=== PATIENT | female | born 1965 | race Caucasian/White ===

== ENCOUNTER 2016-11-09 10:06 | Emergency (ER) | payer OTHER | END 2016-11-09 10:37 | disposition home or self-care (01) | LOC: BURERS 10:06 | DX: Z76.0 Encounter for issue of repeat prescription (principal); I10 Essential (primary) hypertension; F41.9 Anxiety disorder, unspecified; F17.210 Nicotine dependence, cigarettes, uncomplicated; Z79.899 Other long term (current) drug therapy | CPT/HCPCS: 99281 ==

== ENCOUNTER 2016-11-27 10:55 | Emergency (ER) | payer OTHER ==
[2016-11-27 11:28] LABS: #Basophils 0.1 thou/uL (0.0-0.2); #Eosinphils 0.2 thou/uL (0.0-0.7); #Lymphocytes 3.4 thou/uL (1.20-3.40); #Monocytes 0.6 thou/uL (0.11-0.59); %Basophils 1.1 % (0.0-1.0); %Eosinophils 1.5 % (0.0-10.0); %Lymphocytes 33.5 % (21.0-51.0); %Monocytes 5.4 % (0.0-10.0); %Neutrophils 58.5 % (42.0-75.0); Hemoglobin 16.8 g/dL (12.0-16.0); Mean Corpuscular HGB CONC 34.5 g/dL (32.0-36.0); Mean Corpuscular Hemoglobin 30.7 pg (27.0-31.0); Mean Platelet Volume 8.1 fL (7.4-10.4); Platelet Count 235 thou/uL (130-400); RBC Distribution Width 12.1 % (11.5-14.5); Red Blood Cell (RBC) Count 5.47 mill/uL (4.20-5.40); White Blood Cell (WBC) Count 10.2 thou/uL (4.8-10.8)
[2016-11-27 11:40] LABS: ALT (SGPT) 31 U/L (8-55); AST (SGOT) 24 U/L (5-34); Albumin 4.2 g/dL (3.5-5.0); Alkaline Phosphatase 71 U/L (40-150); Anion Gap 18 mmol/L (10-20); BUN (Urea Nitrogen) 11 mg/dL (7.0-18.7); Bilirubin, Total 0.8 mg/dL (0.2-1.2); Calc. Creatinine Clearance 0 mL/min (70-130); Calcium 9.1 mg/dL (7.8-10.44); Carbon Dioxide 22 mmol/L (22-29); Chloride 103 mmol/L (98-107); Estimated GFR-MDRD 76; Globulin 3.4 g/dL (2.4-3.5); Glucose 126 mg/dL (70-105); Lipase 31 U/L (8-78); Potassium 3.8 mmol/L (3.5-5.1); Protein, Total 7.6 g/dL (6.0-8.3); Sodium 139 mmol/L (136-145)
[2016-11-27 11:41] LABS: CKMB 2.3 ng/mL (0-6.6); Troponin I Less than 0.010 ng/mL (< 0.028)
[2016-11-27 12:17] LABS: Bilirubin Negative (Negative); Blood, Urine Negative (Negative); Clarity Clear (Clear); Glucose, Urine (Dipstick) Negative (Negative); Leukocyte Negative (Negative); Nitrite Negative (Negative); Protein, Urine (Dipstick) Negative (Neg-Trace); Urobilinogen 0.2 mg/dL (0.2-1.0)
--- NOTE | 2016-11-27 13:13 | RAD ---
PORTABLE CHEST: DATE: 11/27/16. PROVIDED CLINICAL HISTORY: Chest pain. FINDINGS: Comparison 03/20/16. Cardiac and mediastinal silhouette is within normal limits. Evaluation is limi calderon by patient body habitus. No focal consolidation, pleural fluid, or pneumothorax apparent. IMPRESSION: No evidence for an acute cardiopulmonary process. POS: [facility]
== END 2016-11-27 12:37 | disposition home or self-care (01) ==
LOC: BURERS 10:55
DX: B34.9 Viral infection, unspecified (principal); I10 Essential (primary) hypertension; J44.9 Chronic obstructive pulmonary disease, unspecified; F41.9 Anxiety disorder, unspecified; F17.210 Nicotine dependence, cigarettes, uncomplicated; Z79.899 Other long term (current) drug therapy
CPT/HCPCS: 71010; 80053; 81003; 82553; 83690; 84443; 84484; 85025; 93005; 96360

== ENCOUNTER 2017-05-03 13:27 | Emergency (ER) | payer OTHER ==
--- NOTE | 2017-05-03 14:13 | RAD ---
CHEST TWO VIEWS HISTORY: Cough. COMPARISON: Chest one view 11/27/2016. FINDINGS: Lungs are clear. No pneumothorax or effusion. Cardiac silhouette and mediastinal contours are with in normal limits. IMPRESSION: No acute intrathoracic abnormality. POS: [facility]
== END 2017-05-03 14:15 | disposition home or self-care (01) ==
LOC: BURERS 13:27
DX: B34.9 Viral infection, unspecified (principal); I10 Essential (primary) hypertension; J44.9 Chronic obstructive pulmonary disease, unspecified; F41.9 Anxiety disorder, unspecified; F17.210 Nicotine dependence, cigarettes, uncomplicated; Z79.899 Other long term (current) drug therapy; Z79.1 Long term (current) use of non-steroidal anti-inflammatories (NSAID); Z79.52 Long term (current) use of systemic steroids
CPT/HCPCS: 71020; 99406

== ENCOUNTER 2017-09-08 12:51 | Emergency (ER) | payer OTHER ==
[2017-09-08] MEDS ORDERED: Ketorolac Tromethamine 30 MG/ML VIAL ONE (13:14)
[2017-09-08 13:20] LABS: Bilirubin Small (Negative); Blood, Urine Negative (Negative); Clarity Slightly Cloudy (Clear); Glucose, Urine (Dipstick) Negative (Negative); Leukocyte Negative (Negative); Nitrite Negative (Negative); Protein, Urine (Dipstick) 30 mg/dL (Neg-Trace); Urobilinogen 0.2 mg/dL (0.2-1.0); pH, Urine 7.5 (5.0-9.0)
[2017-09-08 13:32] LABS: Bacteria/HPF 1+ HPF (None Seen); Crystals/HPF None Seen HPF (Negative); Hyaline Casts/LPF NONE SEEN LPF (0-3 Hyaline); Other Casts/LPF None Seen LPF (0-3 Hyaline); Oval Fat Bodies/HPF None Seen HPF (None Seen); RBC/HPF 0-3 HPF (0-3); Renal Epithelial None Seen HPF (0-3); Sperm/HPF None Seen HPF (None Seen); Transitional Epithelial NONE SEEN HPF (0-3); Trichomonas/HPF None Seen HPF (None Seen); WBC/HPF 0-3 HPF (0-3); Yeast-All Forms None Seen HPF (None Seen)
[2017-09-08 13:40] LABS: ALT (SGPT) 24 U/L (8-55); AST (SGOT) 16 U/L (5-34); Albumin 4.1 g/dL (3.5-5.0); Alkaline Phosphatase 76 U/L (40-150); Anion Gap 14 mmol/L (10-20); BUN (Urea Nitrogen) 12 mg/dL (9.8-20.1); Bilirubin, Total 0.5 mg/dL (0.2-1.2); Calc. Creatinine Clearance 0 mL/min (70-130); Calcium 9.2 mg/dL (7.8-10.44); Carbon Dioxide 23 mmol/L (22-29); Chloride 104 mmol/L (98-107); Estimated GFR-MDRD 87; Glucose 126 mg/dL (70-105); Lipase 31 U/L (8-78); Potassium 3.8 mmol/L (3.5-5.1); Protein, Total 7.1 g/dL (6.0-8.3); Sodium 137 mmol/L (136-145)
[2017-09-08 13:42] LABS: #Basophils 0.1 thou/uL (0.0-0.2); #Eosinphils 0.1 thou/uL (0.0-0.7); #Lymphocytes 2.9 thou/uL (1.20-3.40); #Monocytes 0.6 thou/uL (0.11-0.59); #Neutrophils 7.8 thou/uL (1.40-6.50); %Basophils 1.2 % (0.0-1.0); %Eosinophils 0.8 % (0.0-10.0); %Lymphocytes 25.1 % (21.0-51.0); %Monocytes 5.2 % (0.0-10.0); %Neutrophils 67.7 % (42.0-75.0); Eosinophils 1 % (0-10); Hemoglobin 16.3 g/dL (12.0-16.0); Lymphocytes 19 % (21-51); MDiff Complete? YES; Mean Corpuscular HGB CONC 34.9 g/dL (32.0-36.0); Mean Corpuscular Volume 88.8 fl (81.0-99.0); Mean Platelet Volume 8.2 fL (7.4-10.4); Monocytes 4 % (0-10); Neutrophil 76 % (42-75); Platelet Count 205 thou/uL (130-400); RBC Distribution Width 12.3 % (11.5-14.5); Red Blood Cell (RBC) Count 5.25 mill/uL (4.20-5.40); White Blood Cell (WBC) Count 11.6 thou/uL (4.8-10.8)
[2017-09-08] MEDS ORDERED: Fentanyl 100 MCG/2 ML VIAL ONE (13:46)
--- NOTE | 2017-09-08 15:35 | CT ---
CT ABDOMEN AND PELVIS WITH IV CONTRAST: Date: 09/08/17 CLINICAL HISTORY: Abdominal pain. FINDINGS: Comparison is made with the study dated 06/27/15. Fatty infiltration of the liver is again noted. There is a large peripherally calcified gallstone in the region of the gallbladder neck with somewhat conspicuous gallbladder distention, though these fin dings were also present on the prior examination. The spleen, pancreas, kidneys, and adrenal glands a ppear unremarkable. There is subtle fat stranding about a portion of the proximal sigmoid colon along with mural thickeni ng in this region suggesting changes of acute uncomplicated diverticulitis. No evidence for focal flu id collection or extraluminal gas. No bowel dilatation, additional inflammatory fat stranding, or free air apparent. The appendix appear s normal. The osseous structures demonstrate no concerning osteoblastic or osteolytic lesions. IMPRESSION: 1. Findings compatible with acute uncomplicated diverticulitis involving the sigmoid colon. 2. Cholelithiasis with nonspecific gallbladder distention. POS: [facility]
== END 2017-09-08 15:26 | disposition home or self-care (01) ==
LOC: BURERS 12:51
DX: K57.92 Diverticulitis of intestine, part unspecified, without perforation or abscess without bleeding (principal); K80.20 Calculus of gallbladder without cholecystitis without obstruction; I10 Essential (primary) hypertension; J44.9 Chronic obstructive pulmonary disease, unspecified; F41.9 Anxiety disorder, unspecified; F17.210 Nicotine dependence, cigarettes, uncomplicated; Z79.899 Other long term (current) drug therapy
CPT/HCPCS: 74177; 80053; 81003; 81015; 83690; 85025; 96361; 96365; 96366; 96375; J1885; J1956; J3010

== ENCOUNTER 2017-12-11 16:40 | Emergency (ER) | payer OTHER | END 2017-12-11 17:20 | disposition home or self-care (01) | LOC: BURERS 16:40 | DX: L21.9 Seborrheic dermatitis, unspecified (principal); I10 Essential (primary) hypertension; J44.9 Chronic obstructive pulmonary disease, unspecified; F41.9 Anxiety disorder, unspecified; F17.210 Nicotine dependence, cigarettes, uncomplicated; Z79.899 Other long term (current) drug therapy | CPT/HCPCS: 99282 ==

== ENCOUNTER 2018-07-11 13:39 | Emergency (ER) | payer OTHER ==
[2018-07-11] MEDS ORDERED: HYDROcodone/Acetaminophen 10/325 mg Tablet ONE (14:11)
[2018-07-11] MEDS ORDERED: Sulfameth/Trimethoprim DS 800-160mg TAB ONE (14:11)
== END 2018-07-11 14:18 | disposition home or self-care (01) ==
LOC: BURERS 13:39
DX: K57.92 Diverticulitis of intestine, part unspecified, without perforation or abscess without bleeding (principal); I10 Essential (primary) hypertension; J44.9 Chronic obstructive pulmonary disease, unspecified; F41.9 Anxiety disorder, unspecified; F17.210 Nicotine dependence, cigarettes, uncomplicated; Z79.899 Other long term (current) drug therapy
CPT/HCPCS: 99283

== ENCOUNTER 2018-10-24 14:15 | Outpatient (CLI) | payer OTHER ==
--- NOTE | 2018-10-25 17:08 | RAD ---
RIGHT HAND THREE VIEWS: 10/24/18 No fracture or joint abnormality was seen. The carpal bones appear normal. IMPRESSION: No significant finding. POS: [facility]
--- NOTE | 2018-10-25 17:17 | RAD ---
LEFT HAND THRE VIEWS 10/24/18 Comparison was made with the views of the right hand. No fracture or joint abnormality was seen. The carpal bones appear normal. There were no particular arthritic changes of concern. IMPRESSION: No acute findings. POS: [facility]
== END 2018-10-24 14:16 | disposition home or self-care (01) ==
LOC: BURRAD 14:15
PROVIDERS: ATTEND Internal Medicine Rheumatology
DX: M79.643 Pain in unspecified hand (principal)

== ENCOUNTER 2018-11-22 17:17 | Emergency (ER) | payer OTHER ==
[2018-11-22] MEDS ORDERED: Clindamycin 150 MG CAP ONE (18:23)
[2018-11-22] MEDS ORDERED: Ibuprofen 800 MG TAB ONE (18:23)
== END 2018-11-22 18:29 | disposition home or self-care (01) ==
LOC: BURERS 17:17
DX: K04.7 Periapical abscess without sinus (principal); K02.9 Dental caries, unspecified; F17.210 Nicotine dependence, cigarettes, uncomplicated; F41.9 Anxiety disorder, unspecified
CPT/HCPCS: 99282

== ENCOUNTER 2019-10-20 19:59 | Emergency (ER) | payer OTHER ==
[~2019-10-20 19:59] MED LIST: Iopamidol 370 76% 100 ML VIAL ONE
[2019-10-20 20:58] LABS: Prothrombin Time 12.9 SEC (12.0-14.7)
[2019-10-20 21:04] LABS: #Basophils 0.1 thou/uL (0.0-0.2); #Eosinphils 0.2 thou/uL (0.0-0.7); #Lymphocytes 4.1 thou/uL (1.20-3.40); #Monocytes 0.8 thou/uL (0.11-0.59); #Neutrophils 7.6 thou/uL (1.40-6.50); %Eosinophils 1.3 % (0.0-10.0); %Lymphocytes 31.9 % (21.0-51.0); %Neutrophils 59.8 % (42.0-75.0); Hemoglobin 16.7 g/dL (12.0-16.0); Mean Corpuscular HGB CONC 31.9 g/dL (32.0-36.0); Mean Corpuscular Hemoglobin 29.7 pg (27.0-31.0); Mean Platelet Volume 8.8 fL (7.4-10.4); Platelet Count 256 thou/uL (130-400); RBC Distribution Width 12.8 % (11.5-14.5); Red Blood Cell (RBC) Count 5.63 mill/uL (4.20-5.40); White Blood Cell (WBC) Count 12.7 thou/uL (4.8-10.8)
[2019-10-20] MEDS ORDERED: Morphine 10 MG/ML VIAL ONE (21:08)
[2019-10-20] MEDS ORDERED: Ondansetron PF 4 MG/2 ML Vial ONE ×2 (21:08→22:22)
[2019-10-20 21:20] LABS: Sodium 138 mmol/L (136-145)
[2019-10-20 21:22] LABS: Calc. Creatinine Clearance 0 mL/min (70-130); Carbon Dioxide 23 mmol/L (22-29); Chloride 102 mmol/L (98-107); Estimated GFR-MDRD 80; Glucose 86 mg/dL (70-105); Lipase 30 U/L (8-78)
[2019-10-20 21:23] LABS: ALT (SGPT) 24 U/L (8-55); Albumin 4.2 g/dL (3.5-5.0); Alkaline Phosphatase 74 U/L (40-110); Anion Gap 18 mmol/L (10-20); BUN (Urea Nitrogen) 12 mg/dL (9.8-20.1); Bilirubin, Total 0.5 mg/dL (0.2-1.2)
[2019-10-20 21:35] LABS: AST (SGOT) 17 U/L (5-34); Globulin 2.9 g/dL (2.4-3.5); Potassium 3.7 mmol/L (3.5-5.1); Protein, Total 7.1 g/dL (6.0-8.3)
--- NOTE | 2019-10-20 22:01 | CT ---
CT ABDOMEN AND PELVIS WITH CONTRAST: Date: 10-20-[address] of the abdomen and pelvis was performed for evaluation of left lower quadrant pain and diar fermin. FINDINGS: The lung bases are clear. The liver shows diffuse fatty infiltration but otherwise appears normal. Th e spleen, pancreas, adrenal glands, kidneys and abdominal aorta showed no acute findings. There has b een a prior cholecystectomy. There are nonspecific fluid filled loops of small bowel, largest loops measuring 2.3 cm in width. Kash e of the umana are mildly thickened. The pattern is most suggestive of enteritis. The colon shows no obstruction. Diverticulosis without diverticulitis is present. No free air or free fluid was seen. CT of the pelvis shows no inflammatory changes, masses, or other acute changes. There is no free flui d. No acute bony changes are noted. IMPRESSION: 1. Findings most suggestive of an enteritis type of pattern. 2. Diffuse fatty infiltration of the liver. 3. Diverticulosis. Findings discussed with Dr. Sinclair at 2142 on 10-20-2019. POS: [facility]
[2019-10-20] MEDS ORDERED: Dicyclomine 20 MG TAB ONE (22:22)
[2019-10-20] MEDS ORDERED: Morphine 4 MG/ML VIAL ONE (22:22)
== END 2019-10-20 22:48 | disposition home or self-care (01) ==
LOC: BURERS 19:59
DX: K52.9 Noninfective gastroenteritis and colitis, unspecified (principal); I10 Essential (primary) hypertension; J44.9 Chronic obstructive pulmonary disease, unspecified; F17.210 Nicotine dependence, cigarettes, uncomplicated; F41.9 Anxiety disorder, unspecified; Z79.899 Other long term (current) drug therapy
CPT/HCPCS: 74177; 80053; 83605; 83690; 85025; 85610; 96374; 96375; 96376; J2270; J2405; Q9967

== ENCOUNTER 2019-11-18 18:25 | Emergency (ER) | payer OTHER ==
[2019-11-18 18:50] LABS: Bilirubin Negative (Negative); Blood, Urine Small (Negative); Clarity Cloudy (Clear); Glucose, Urine (Dipstick) Negative (Negative); Leukocyte Negative (Negative); Nitrite Negative (Negative); Pregnancy Test - Urine (BHCG) Negative (Negative); Protein, Urine (Dipstick) Negative (Neg-Trace)
[2019-11-18 18:51] LABS: Pregu Control Background? CLEAR/WHITE (CLR/WHITE); Pregu Control Bar Appear? YES (CONTROL BAR); Specific Gravity 1.023 (1.002-1.036)
[2019-11-18] MEDS ORDERED: Cyclobenzaprine 10 MG TAB ONE (18:51)
[2019-11-18] MEDS ORDERED: Ketorolac Tromethamine 60 MG/2 ML VIAL ONE (18:51)
[2019-11-18 18:55] LABS: Bacteria/HPF 3+ HPF (None Seen); Broad Cast None Seen LPF (None Seen); Calcium Oxalate Crystals None Seen HPF (None Seen); Cellular Cast None Seen LPF (None Seen); Epithelial Cast None Seen LPF (None Seen); Fatty Cast None Seen LPF (None Seen); Mucous/LPF 2+ LPF (<2+); Other Casts None Seen LPF (None Seen); Oval Fat Bodies/HPF None Seen HPF (None Seen); Red Blood Cell Cast None Seen LPF (None Seen); Renal Epithelial None Seen HPF (None Seen); Sperm/HPF None Seen HPF (None Seen); Transitional Epithelial None Seen HPF (None Seen); Trichomonas/HPF None Seen HPF (None Seen); Triple Phosphate Crystal None Seen HPF (None Seen); Unclassified Crystals None Seen HPF (None Seen); WBC/HPF 0-3 HPF (0-3); Waxy Cast None Seen LPF (None Seen); White Blood Cell Cast None Seen LPF (None Seen); Yeast-Budding None Seen HPF (None Seen); Yeast-Hyphae None Seen HPF (None Seen)
--- NOTE | 2019-11-18 20:30 | CT ---
CT ABDOMEN AND PELVIS WITHOUT CONTRAST: 11/18/[address] of the abdomen and pelvis was done without IV contrast and compared with a 10/20/2019 study. The lung bases are clear. As before, there is diffuse fatty infiltration of the liver. The liver, sp brandi, pancreas, adrenal glands, kidneys and abdominal aorta were unremarkable within the limitations of this noncontrast study. There is no sign of ureterolithiasis or hydronephrosis. There is no distention of bowel today. Fluid filled loops of small bowel seen previously have resolve d. There is fairly extensive colonic diverticulosis, particularly in the left colon, but there was no definite streaking around it to diagnose diverticulitis. No free air or free fluid was seen. A minim al fat filled ventral hernia is noted. The low anterior abdominal wall shows more of a split between the rectus muscles where a hernia is probably forming. There is no sign of bowel entrapment or obstru ction. CT of the pelvis shows no pelvic masses, fluid collections, or inflammatory changes. IMPRESSION: 1. Diverticulosis without definite diverticulitis. 2. Diffuse fatty infiltration of the liver. 3. Probable ventral abdominal wall hernia forming (present previously), but no acute findings to explain any of the current symptoms. Preliminary report called to Dr. Doherty at 1921 on 11/18/2019. POS: [facility]
== END 2019-11-18 19:32 | disposition home or self-care (01) ==
LOC: BURERS 18:25
DX: S39.012A Strain of muscle, fascia and tendon of lower back, initial encounter (principal); S39.011A Strain of muscle, fascia and tendon of abdomen, initial encounter; M19.90 Unspecified osteoarthritis, unspecified site; M79.7 Fibromyalgia; I10 Essential (primary) hypertension; J44.9 Chronic obstructive pulmonary disease, unspecified; F41.9 Anxiety disorder, unspecified; F17.210 Nicotine dependence, cigarettes, uncomplicated; Z79.899 Other long term (current) drug therapy; X50.0XXA Overexertion from strenuous movement or load, initial encounter
CPT/HCPCS: 74176; 81003; 81015; 81025; 96372; J1885

== ENCOUNTER 2020-02-17 11:50 | Emergency (ER) | payer OTHER ==
[2020-02-17] MEDS ORDERED: Ondansetron PF 4 MG/2 ML Vial ONE (12:58)
[2020-02-17 13:12] LABS: #Basophils 0.1 thou/uL (0.0-0.2); #Eosinphils 0.1 thou/uL (0.0-0.7); #Lymphocytes 3.3 thou/uL (1.20-3.40); #Monocytes 0.5 thou/uL (0.11-0.59); #Neutrophils 7.5 thou/uL (1.40-6.50); %Basophils 1.3 % (0.0-1.0); %Eosinophils 0.9 % (0.0-10.0); %Lymphocytes 28.8 % (21.0-51.0); %Monocytes 4.4 % (0.0-10.0); %Neutrophils 64.8 % (42.0-75.0); Hemoglobin 16.1 g/dL (12.0-16.0); Mean Corpuscular HGB CONC 31.1 g/dL (32.0-36.0); Mean Corpuscular Hemoglobin 29.4 pg (27.0-31.0); Mean Corpuscular Volume 94.7 fL (78.0-98.0); Mean Platelet Volume 8.4 fL (7.4-10.4); Platelet Count 238 thou/uL (130-400); RBC Distribution Width 12.7 % (11.5-14.5); Red Blood Cell (RBC) Count 5.48 mill/uL (4.20-5.40); White Blood Cell (WBC) Count 11.6 thou/uL (4.8-10.8)
[2020-02-17 13:32] LABS: ALT (SGPT) 31 U/L (8-55); AST (SGOT) 20 U/L (5-34); Albumin 4.2 g/dL (3.5-5.0); Alkaline Phosphatase 71 U/L (40-110); Anion Gap 16 mmol/L (10-20); BUN (Urea Nitrogen) 9 mg/dL (9.8-20.1); Bilirubin, Total 0.6 mg/dL (0.2-1.2); Calc. Creatinine Clearance 0 mL/min (70-130); Calcium 8.8 mg/dL (7.8-10.44); Carbon Dioxide 25 mmol/L (22-29); Chloride 103 mmol/L (98-107); Estimated GFR-MDRD 78; Glucose 92 mg/dL (70-105); Lipase 29 U/L (8-78); Potassium 3.8 mmol/L (3.5-5.1); Protein, Total 7.2 g/dL (6.0-8.3); Sodium 140 mmol/L (136-145)
[2020-02-17 14:18] LABS: Bilirubin Negative (Negative); Blood, Urine Trace (Negative); Clarity Clear (Clear); Glucose, Urine (Dipstick) Negative (Negative); Ketone, Urine Negative (Negative); Leukocyte Small (Negative); Nitrite Negative (Negative); Protein, Urine (Dipstick) Negative (Neg-Trace); Urobilinogen 0.2 mg/dL (Less than 2)
[2020-02-17 14:23] LABS: RBC/HPF 0-3 HPF (0-3)
[2020-02-17 14:24] LABS: Bacteria/HPF 2+ HPF (None Seen); Squamous Epithelial 0-3 HPF (0-3); WBC/HPF 0-3 HPF (0-3)
== END 2020-02-17 14:36 | disposition home or self-care (01) ==
LOC: BURERS 11:50
DX: E86.0 Dehydration (principal); R11.2 Nausea with vomiting, unspecified; R19.7 Diarrhea, unspecified; I10 Essential (primary) hypertension; J44.9 Chronic obstructive pulmonary disease, unspecified; F41.9 Anxiety disorder, unspecified; F17.210 Nicotine dependence, cigarettes, uncomplicated; Z79.899 Other long term (current) drug therapy
CPT/HCPCS: 80053; 81003; 81015; 83605; 83690; 85025; 96361; 96374; J2405

== ENCOUNTER 2020-05-22 16:55 | Emergency (ER) | payer OTHER | END 2020-05-22 17:15 | disposition home or self-care (01) | LOC: BURERS 16:55 | DX: H00.14 Chalazion left upper eyelid (principal); M19.90 Unspecified osteoarthritis, unspecified site; I10 Essential (primary) hypertension; J44.9 Chronic obstructive pulmonary disease, unspecified; F41.9 Anxiety disorder, unspecified; F17.210 Nicotine dependence, cigarettes, uncomplicated; Z79.899 Other long term (current) drug therapy | CPT/HCPCS: 99281 ==

== ENCOUNTER 2021-03-10 13:34 | Emergency (ER) | payer OTHER | END 2021-03-10 16:01 | disposition home or self-care (01) | LOC: BURERS 13:34 | DX: M79.672 Pain in left foot (principal); I10 Essential (primary) hypertension; J44.9 Chronic obstructive pulmonary disease, unspecified; M19.90 Unspecified osteoarthritis, unspecified site; F17.210 Nicotine dependence, cigarettes, uncomplicated ==